=== PATIENT | male | born 1945 | race Caucasian/White ===

== ENCOUNTER → 2017-12-23 15:37 | Outpatient (CLI) | payer MEDICARE, OTHER, SELFPAY ==
--- NOTE | 2017-12-23 | DI.US.S_ITS ---
PROCEDURE: US GRANT LIMITED SINGLE LEVEL INDICATIONS: PERIPHERAL VASCULAR DISEASE TECHNIQUE: Ankle-brachial indices were obtained bilaterally and recorded. COMPARISONS: FINDINGS: The bilateral lower extremity runoff vessels are noncompressible. IMPRESSION: Noncompressible bilateral lower extremity runoff vessels, limiting ankle-brachial index measurement. Dictated by: Shannan Cantu M.D. on 12/23/2017 at 16:37 Approved by: Shannan Cantu M.D. on 12/23/2017 at 16:38
--- NOTE | 2017-12-23 | DI.US.S_ITS ---
PROCEDURE: US ARTERIAL DUPLEX LE BI INDICATIONS: Peripheral vascular disease, unspecified TECHNIQUE: Color and pulse Doppler interrogation was performed of both lower extremity arterial systems, with image documentation. COMPARISON: None. FINDINGS: Right lower extremity: Common femoral artery: 108 cm/sec, with triphasic flow. Deep femoral artery: 78 cm/sec, with biphasic flow. Proximal superficial femoral artery: 105 cm/sec, with triphasic flow. Mid superficial femoral artery: 101 cm/sec, with triphasic flow. Distal superficial femoral artery: 157 cm/sec, with triphasic flow. Popliteal artery: 56 cm/sec, with triphasic flow. Posterior tibial artery: 56 cm/sec, with triphasic flow. Anterior tibial artery/dorsalis pedis: 83 cm/sec, with triphasic flow. Cole-scale imaging description: Mild diffuse plaque Left lower extremity: Common femoral artery: 100 cm/sec, with triphasic flow. Deep femoral artery: 53 cm/sec, with biphasic flow. Proximal superficial femoral artery: 102 cm/sec, with triphasic flow. Mid superficial femoral artery: 95 cm/sec, with triphasic flow. Distal superficial femoral artery: 58 cm/sec, with triphasic flow. Popliteal artery: 57 cm/sec, with triphasic flow. Posterior tibial artery: 79 cm/sec, with triphasic flow. Anterior tibial artery/dorsalis pedis: 66 cm/sec, with triphasic flow. Cole-scale imaging description: Mild diffuse plaque IMPRESSION: No evidence of bilateral lower extremity arterial Insufficiency. Dictated by: Shannan Cantu M.D. on 12/23/2017 at 16:38 Approved by: Shannan Cantu M.D. on 12/23/2017 at 16:40
== END ==
PROVIDERS: PCP Family Medicine; Visit Provider Nurse Practitioner Acute Care
DX: I73.9 Peripheral vascular disease, unspecified (principal)
CPT/HCPCS: 93922; 93925

== ENCOUNTER → 2021-07-31 13:31 | Outpatient (CLI) | payer MEDICARE, OTHER, SELFPAY | PROVIDERS: PCP Nurse Practitioner Family; Referring Provider Nurse Practitioner Family; Visit Provider Nurse Practitioner Family | DX: Z13.820 Encounter for screening for osteoporosis; M85.852 Other specified disorders of bone density and structure, left thigh | CPT/HCPCS: 77080 ==